=== PATIENT | male | born 1955 | race Caucasian/White ===

== ENCOUNTER 2016-11-26 05:27 | Inpatient (IN) | payer OTHER ==
--- NOTE | 2016-08-22 08:40 | PCM.ANEPRE ---
Anesthesia Pre-Op Review Reason for Review: STOP BANG 12/18 Anesthesia Recommendations: Delay until Additional Data Obtain (Patient needs sleep study and eval for CPAP need before surgery.) Gary Rowley MD Aug 22, 2016 08:40
[2016-11-26] VITALS (12 sets, daily range): BP systolic 106–133; BP diastolic 61–86; PULSE 63–80; RESP 14–21; O2SAT 94–98
[~2016-11-26] VITALS: Ht 188 cm; Wt 119.2 kg
[~2016-11-26 05:27] MED LIST: ASPI-973 PO; HYDR25TA4 PO; IBUP200C PO; LEVO50TA6 PO; Lactated Ringer's 1,000 ML IV ONE; NAPR220C11 PO; SILD100T PO
[2016-11-26] MEDS: Lactated Ringer's 1,000 ML IV SCH ×2 (05:30→07:36)
[2016-11-26] MEDS ORDERED: CeFAZolin Inj 2 GM in IV Premix 1 EACH IV SCH (06:00)
[2016-11-26] MEDS ORDERED: DEXTROSE 5% IV SCH (06:00)
[2016-11-26] MEDS ORDERED: GENTAMICIN IV SCH (06:00)
--- NOTE | 2016-11-26 07:16 | PCM.HPANE ---
Patient Data Surgeon Admitting Provider: Attending Provider:Dav Mcgowan MD Primary Care Physician:Ricardo Bullard MD Other Provider:AndiocReinaGouldbusk Anesthesia Reason for Visit Right Shoulder Arthritis Ht/WT & BMI Height (Feet): 6 Height (Inches): 2.00 Weight (Kilograms): 119.2 Body Mass Index 33.00 Allergies Coded Allergies: No Known Allergies (Unverified , 11/20/16) Past Anesthesia History Anesthesia History: Denies:: Anesthesia Reactions, Malignant Hyperthermia Diabetes History Hx Diabetes?: No MRSA MRSA: No Medications Blood Thinner: Aspirin Hypertension Medication: Yes (HCTZ) Home Meds Incl Beta Jamison: No Reported Medications Naproxen Sodium (Aleve)220 Mg [id number] Mg PO BID PRN prn 11/20/16 Sildenafil Citrate (Viagra)100 Mg [id number] Mg PO UD PRN ED Ref 0 08/21/16 Levothyroxine 50 Mcg [id number] Mcg PO DAILY Ref 0 08/21/16 Ibuprofen 200 Mg [id number] Mg PO QID PRN For Pain Ref 0 08/21/16 Hydrochlorothiazide 25 Mg Lluret47 Mg PO DAILY 30 Days Ref 0 08/21/16 Aspirin 81 Mg [id number] Mg PO DAILY Ref 0 08/21/16 Discontinued Reported Medications Acetaminophen 500 Mg Wuaxog477-7,000 Mg PO Q6H PRN For Pain 08/21/16 History History of ENT Problems?: Yes HEENT History: Positive for:: Sinus Problem (NASAL CONGESTION) Denies:: Abnormal Airway Cataracts Difficult Intubation Dysphagia Glaucoma Hearing Problem TMJ Denture Type: None Teeth Condition: Within Normal Limits Hx of Heart Problems?: Yes Cardiovascular History: Positive for:: Hypertension Irregular Heartbeat (NOTED DURING SLEEP STUDY PAC'S,PVC'S) Denies:: Heart Murmur Other Cardiac History: C/OF BRUISING EASILY Hx of Respiratory Problem?: Yes Respiratory History: Positive for:: Pneumonia (HX OF X2) Use of C-PAP Machine (HERRERA+ W/ CPAP (STARTED 11/07/16) HOME SLEEP STUDY ) Hx Neurologic Problems?: Yes Other Neurological Pertinent: NEUROPATHY/PARESTHESIAS LE'S HX OF CONCUSSIONS X2 Hx of GI Problems?: Yes Other GI Pertinent History: 40# INTENTIONAL WEIGHT LOSS OVER 6 MONTHS TO IMPROVE HERRERA Hx of Problems?: Yes Other Pertinent History: ED Male Hx: Denies:: Prostate Problems Scrotal Mass Testicular Surgery Skin History: Denies:: History Skin Disorders? Pressure Ulcers Hx Musculoskeletal Problems?: Yes Musculoskeletal History: Positive for:: Degenerative Joint Osteoarthritis (RT SHOULDER=CURRENT PROBLEM HX RT SHOULDER DISLOCATION TEENAGER) Denies:: Back Injury (C/OF BACK PAIN) Hx of Psycho/Social Problems?: No Hx Surgeries?: Yes (SPINAL SURGERY,HAND RPR) Hx Any Other Health Problems?: Yes Other History: Positive for:: Thyroid Disease (DARLEEN'S THYROIDITIS) Denies:: Cancer Endocrine Disease Hospitalization History Blood Transfusions: Denies:: Blood Transfusions Hx Diabetes: No Hx Alcohol Use: NoHx Substance Use: No Smoking Status: Smoker Current Status UNK Have You Smoked inLast 12 mo: No Stop/Bang Treated for Sleep Apnea?: Yes Do You Have a CPAP Machine?: Yes S-Snoring: Do You Snore Loudly: Yes T-Tired: feel tired, fatigued: No O-Obsered: Observed not breath: No P-Blood Pressure: treated: Yes B- Body Mass Index > 35 kg/m2: No A- Age over 50: Yes N- Neck Large Circumference: Yes G- Gender Male: Yes HERRERA Total Score: 5 HERRERA Risk Assessment: High Risk, =/>3 Yes Risk Assessment Category Category 1A: Patient has history of documented sleep apnea, and HAS NOT received any narcotic, sedative or anesthesia administration during this stay. Category 1B: Patient has history of documented sleep apnea, and HAS received any narcotic , sedative or anesthesia administration during this stay Category 2: Patient has SUSPECTED Obstructive Sleep Apnea, and HAS received any narcotic , sedative or anesthesia administration during this stay. Category 3: Patient has SUSPECTED Obstructive Sleep Apnea and HAS NOT received narcotic, sedative or anesthesia administration during this stay. Category 4: Outpatient in Procedural Areas with known sleep apnea or who screen positive for High Risk via the STOP/BANG questionnaire. Exam Exam Vital Signs Vital Signs Date Time Temp Pulse Resp B/P Pulse Ox O2 Delivery O2 Flow Rate FiO2 11/26/16 06:03 CPAP/BIPAP 11/26/16 06:02 36.0 80 18 133/86 98 Room Air General Appearance: Oriented X3 HEENT/AIRWAY: MP 2 Lungs: Normal Air Movement Heart: Regular Rate/Rhythm Meds/Labs/Diagnostics Admission Meds Current Medications Lactated Ringer's (Lr) 1,000 ml @ 120 mls/hr Q8H20M IV Last administered on t 05:30; Start 11/26/16 at 05:00; Stop 11/26/16 at 13:19 Plan Impression Patient chart reviewed, patient interviewed and anesthestic plan with risks, benefits, and alternatives discussed, and informed consent obtained. ASA Physical Status: ASA2 Mod Systemic Disease Anesthetic Plan: GA, Regional Block Bene/Risks/Altern/Consents: Yes HP Complete Prior to Induction: Yes Michele Cotto MD November 26, 2016 07:16
[2016-11-26] MEDS ORDERED: Hip/Knee Infiltration Cocktail IM ONE ×7 (07:22)
[2016-11-26] MEDS ORDERED: Bupivacaine Liposome 1.3% 20 mL Inj INFILTRATE ONE (07:22)
[2016-11-26] MEDS ORDERED: 0.9% Sodium Chloride 200 ML ONE (07:26)
[2016-11-26] MEDS: Tranexamic Acid 100 mg/mL 10 mL Inj ONE ×2 (07:58→09:23)
[2016-11-26] MEDS ORDERED: Lactated Ringer's 500 ML IV PRN (08:10)
[2016-11-26] MEDS ORDERED: Ondansetron 2 mg/mL 2 mL Inj IVPUSH PRN (08:10)
[2016-11-26] MEDS ORDERED: MetoCLOpramide 5 mg/mL 2 mL Inj IVPUSH PRN (08:10)
[2016-11-26] MEDS ORDERED: Dexamethasone 4 mg/mL Inj IVPUSH PRN (08:10)
[2016-11-26] MEDS ORDERED: Labetalol 5 mg/mL 4 mL Inj IV PRN (08:10)
[2016-11-26] MEDS ORDERED: Lactated Ringer's 1,000 ML IV SCH (08:10)
[2016-11-26] MEDS ORDERED: fentaNYL-PF 50 mCg/mL 2 mL Inj IVPUSH PRN (08:10)
[2016-11-26] MEDS ORDERED: HYDROmorphone 1 mg/mL Inj IVPUSH PRN (08:10)
[2016-11-26] MEDS ORDERED: EPHEDrine Sulfate 50 mg/mL Inj IVPUSH PRN (08:10)
[2016-11-26] MEDS ORDERED: Phenylephrine 10,000 mCg/mL Inj IVPUSH PRN (08:10)
[2016-11-26] MEDS ORDERED: Gentamicin 40 mg/mL 2 mL Inj INJ ONE (08:35)
[2016-11-26] MEDS ORDERED: Bacitracin 50,000 unit Inj IRRIGATION ONE (08:35)
[2016-11-26] MEDS ORDERED: hydrOXYzine Pamoate 25 mg Capsule PO PRN ×2 (10:00→12:15)
[2016-11-26] MEDS ORDERED: HYDROcodone-APAP 5-325 mg Tablet PO PRN ×2 (10:00→12:15)
[2016-11-26] MEDS ORDERED: Ketorolac 15 mg/mL Inj IVPUSH ONE (10:00)
--- NOTE | 2016-11-26 10:08 | PCM.ORTHOP ---
Orthopedic Operative Report Date of Service: November 26, 2016 Pre Operative Diagnosis Right shoulder degenerative joint disease Post Operative Diagnosis Same Procedure Right total shoulder arthroplasty, open biceps tenodesis Surgeon Surgeon: Dav Mcgowan MD Assistants: Andres Miller Indication for Procedure Right shoulder degenerative joint disease Findings Per dictation Details of Procedure Implant: Arthrex univers vaultlock size large glenoid, stem size 8mm with 52/ 20head The risks, benefits, indications and alternatives, including non-operative management of open reduction and plating were discussed with the patient in detail. The patient understood this operation would be strictly for pain control and would not necessarily improve the function of the arm. The patient voiced understanding of the risks and agreed to proceed. All questions were answered to the patients satisfaction. Verbal and written consent were obtained. Description of Operation: The patient was brought to the operating room. Time out was performed in the presence of the Orthopedic and the tele rn. Preoperative antibiotics were given. Interscalene block performed by anesthesia. General anesthesia was administered. The patient was placed in a beachchair position. The right arm was prepped and draped in the usual sterile fashion. A standard deltopectoral approach was made. Blunt dissection was carried through the interval to expose the subscapularis muscle after retracting the conjoined tendon medially. Care was taken to not damage nearby neurovascular structures. The anterior humeral circumflex vessels were ligated. Paulino scissors were used to cut through the rotator interval to expose the anatomic neck of the humerus. The subscapularis tendon was tagged using # 1 Ethibond sutures. The subscapularis tendon was cut longitudinally using a Bovie. The shoulder was slowly externally rotated while peeling the inferior capsule off of the humeral neck until the shoulder was dislocated and the humeral head was exposed. There were [several small loose bodies] in the subscapularis recess which were removed. There was extensive erosion and flattening of the humeral head. Extensive osteophytes were present over the periphery of the humeral head. 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 The subscapularis was tucked medially. The osteophytes around the humeral head were removed using an osteotome and mallet to expose the anatomic neck. The supraspinatus and infraspinatus were found to be intact and attached to the greater tuberosity. A neck cutting guide was placed and then the cut was made with 30 degrees of retroversion using a saw. The neck was sequentially broached to the proper fit. The head trial were placed until the proper fit was obtained. A head protector sleeve was placed on the cut surface. Using a Triatt retractor the glenoid was exposed. Circumferential exposure of the glenoid from the 1 o'clock position to the 7 o'clock position was done using a Bovie taking care to stay close to the bone. The glenoid was sized and then reamed appropriately. Peg holes were drilled along with the center hole. A trial implant was placed which fit well. After removing the trial, the wound was irrigated. The peg holes were filled with manually pressurized cement and the above mentioned glenoid component was impacted until an excellent fit was obtained. Attention was then taken to the humeral head. The humeral head trial was placed the the shoulder stability was verified after reduction and found to be appropriate. The trial head and stem were removed and proper inclination was noted. Multiple #2 Fiber-wire sutures were placed in the lateral subscapularis stump on the lesser tuberosity and then through the rim of the humeral neck. The implant was assembled on the back table. The wound was irrigated. The humeral implant was impacted into the humerus until the proper fit was obtained. The shoulder was reduced and excellent stability was tested and verified. The subscapularis was then repaired using the aforementioned Fiber-wire sutures and also an 0-Vicryl suture. A proximal biceps tenotomy was performed after a distal tenodesis was performed to the pec major.. The rotator interval was closed. Hemostasis was achieved. The wound was irrigated with copious saline. Local cocktail was used which included bupivicaine. Gentamicin was injected into the joint. IV transexamic acid was used preop and intraop. The wound was then closed in layers , dressed appropriately and the shoulder was placed in an immobilizer. The patient was extubated without difficulty and transferred to the PACU in stable condition. Nonweightbearing to affected upper extremity. Please leave sling on at all times. You may remove sling 3 times a day to move the elbow wrist and fingers. Do not move your shoulder. PROM only, IR to body, ER to 0 degrees, FF to 90 degrees, ABD to 0 degrees. Keep your arm at neutral, NO external rotation of the arm, no resisted IR of the arm. Please keep the affected extremity elevated when possible. You may use ice and/or heat as needed for comfort. Follow-up in 2 weeks with me with 2-view xrays and for suture removal and Steri -Strip application. Follow-up with me at 6 weeks. You will have pain medications , medication for constipation and aspirin 81 qdaily X 2 weeks. Grafts, Implants: None Complications There were no periprocedural complications identified. Condition Stable Anesthetic Administered: GA Catheters: None Output, Estimated Blood Loss: 50 Blood Admin during surgery: No Surgical Cast or Splint: Shoulder Immobilizer Surgical Specimen Removed: No Specimen sent to Pathology: No copies to: Dav Mcgowan MD, Christopher L MD November 26, 2016 10:08
[2016-11-26] MEDS ORDERED: SUGAMMADEX SODIUM IV ONE (10:09)
--- NOTE | 2016-11-26 11:05 | DRSVH ---
PROCEDURE: X-RAY RIGHT SHOULDER, MINIMUM TWO VIEWS ([id number]) INDICATIONS: post op TECHNIQUE: 3 views of the shoulder were acquired. COMPARISON: [facility], CR, XR SHOULDER MIN 2VW RT, 07/02/2016, 9:19. FINDINGS: Expected postoperative changes related to a total right shoulder arthroplasty are evident. The metal lic humeral prosthetic component is intact and appropriately seated without periprosthetic fracture. No dislocation is evident. Postoperative changes of the glenoid are also noted. Expected postopera tive changes within the overlying soft tissues are noted. No unexpected radiopaque foreign bodies ar e identified. IMPRESSION: Expected postoperative changes of the right shoulder, status post total right shoulder ar throplasty. Dictated by: Esau Escobar M.D. on 11/26/2016 at 10:02 Approved by: Esau Escobar M.D. on 11/26/2016 at 10:03
--- NOTE | 2016-11-26 11:13 | PCM.ANEP1 ---
Post Anesthesia Phase 1 PACU Phase 1 Assessment Date of Service: November 26, 2016 Vital Signs Vital Signs Date Time Temp Pulse Resp B/P Pulse Ox O2 Delivery O2 Flow Rate FiO2 11/26/16 11:05 65 18 107/61 94 Nasal Cannula 2 11/26/16 11:00 68 18 110/67 94 Nasal Cannula 2 11/26/16 10:50 72 20 113/68 94 Nasal Cannula 2 11/26/16 10:40 36.4 71 19 115/66 96 Room Air 11/26/16 10:35 73 21 113/64 97 Simple Mask 8 11/26/16 10:30 72 21 130/72 98 Simple Mask 8 11/26/16 10:25 75 16 121/76 97 Simple Mask 8 11/26/16 10:20 79 21 129/72 96 Simple Mask 8 11/26/16 10:18 36.7 80 14 133/77 94 Simple Mask 10 11/26/16 06:03 CPAP/BIPAP 11/26/16 06:02 36.0 80 18 133/86 98 Room Air Anesthetic Administered: GA Level of Alertness: Awake, talking Pain: No Nausea or Vomiting: No Airway Device: Oralpharangeal Airway Oxygen Delivery: Room Air Lungs: Normal Air Movement Michele Cotto MD November 26, 2016 11:13
[2016-11-26] MEDS ORDERED: Ondansetron 2 mg/mL 2 mL Inj ONE (11:25)
[2016-11-26] MEDS ORDERED: Rocuronium 10 mg/mL 5 mL Inj ONE (11:25)
[2016-11-26] MEDS ORDERED: Propofol 10,000 mCg/mL 20 mL Inj ONE (11:25)
[2016-11-26] MEDS ORDERED: MetoCLOpramide 5 mg/mL 2 mL Inj ONE (11:25)
[2016-11-26] MEDS ORDERED: Dexamethasone 4 mg/mL Inj ONE (11:25)
[2016-11-26] MEDS ORDERED: Phenylephrine/NS 100 mCg/mL 10 mL Syringe IVPUSH ONE (11:25)
[2016-11-26] MEDS ORDERED: Glycopyrrolate 0.2 MG/ML 1mL Inj ONE (11:25)
[2016-11-26] MEDS ORDERED: Neostigmine 1 mg/mL 10 mL Inj ONE (11:25)
[2016-11-26] MEDS ORDERED: Ondansetron 8 mg ODT Tablet PO PRN (12:15)
[2016-11-26] MEDS ORDERED: Alum-Mag Hydrox-Simeth 30 mL Suspension PO PRN (12:15)
[2016-11-26] MEDS ORDERED: Sodium Biphos-Phos 133 mL Enema RECTAL PRN (12:15)
[2016-11-26] MEDS ORDERED: Ondansetron 2 mg/mL 2 mL Inj IV PRN (12:15)
[2016-11-26] MEDS ORDERED: diphenhydrAMINE 25 mg Capsule PO PRN (12:15)
[2016-11-26] MEDS ORDERED: Magnesium Hydroxide 10 mL Oral Concentration PO PRN (12:15)
[2016-11-26] MEDS ORDERED: MetoCLOpramide 5 mg/mL 2 mL Inj IV PRN (12:15)
--- NOTE | 2016-11-26 13:28 | NUR ---
Arrival to 1025 Pt transferred from PACU at 1120 to room 1025, report taken from AUDREY Horn. Pt denies pain in R shoulder from block: sensation intact from fingers up to mid upper arm, shoulder is numb; moves fingers and wrist. Nausea is denied and pt is tolerating clear liquids well; IVF not restarted at this time. On 2L NC and set up on CPOx for HERRERA protocol; CPAP is at bedside for use tonight. KEEGAN marie on BLE and SCD's applied. Pt oriented to room at this time.
--- NOTE | 2016-11-26 15:58 | NUR ---
PT NOTE-- Patient seen by OT for TSA rehab. Discontinue PT order.
--- NOTE | 2016-11-26 15:59 | NUR ---
Evaluation completed. Please go to "Notes" then click on "Assessments and Notes" (bottom left corner of screen). Then select appropriate discipline tab on top of screen.
[2016-11-26] MEDS ORDERED: CeFAZolin Inj 1 GM in IV Premix 1 EACH IV SCH (16:30)
[2016-11-26] MEDS ORDERED: 0.9% Sodium Chloride 250 ML ONE (16:49)
[2016-11-26] MEDS: CeFAZolin Inj 2 GM in IV Premix 1 EACH IV SCH (16:57)
[2016-11-26] MEDS: Ketorolac 15 mg/mL Inj IVPUSH SCH (18:30)
[2016-11-27] MEDS: Ketorolac 15 mg/mL Inj IVPUSH SCH (00:59)
[2016-11-27] MEDS: CeFAZolin Inj 2 GM in IV Premix 1 EACH IV SCH (01:03)
[2016-11-27 04:13] VITALS: BP 128/92; PULSE 68; RESP 18; O2SAT 98
--- NOTE | 2016-11-27 05:27 | NUR ---
PAIN / SLEEP Patient denied BTP thru NOC, states he is comfortable and declined offer of PRN. RUE sling in place, + CSM checks. Home CPAP applied at HS, CPOX sats 97%. denies SOB/dyspnea. Slept well thru the NOC. no c/o. VS are stable. CTM for changes.
[2016-11-27 06:36] LABS: BASOPHILS % (AUTO) 0 % (0-3); EOSINOPHILS % (AUTO) 0.1 % (0-5); MONOCYTES % (AUTO) 6.8 % (4-12); Mean Corpuscular Hemoglobin 29.6 pg (27.0-35.0); Mean Corpuscular Volume 90.1 fL (81-100); NEUTROPHILS % (AUTO) 86.9 % (40-74); Platelet Count 218 bil/L (150-400)
[2016-11-27 07:52] VITALS: BP 130/78; PULSE 64; RESP 18; O2SAT 98
--- NOTE | 2016-11-27 10:22 | PCM.DIORTH ---
Ortho Discharge Instruction Date of Service: November 27, 2016 Dates of Hospitalization Date of Hospital Admission November 26, 2016 at 11:24 Providers Admitting Physician: Dav Mcgowan MD Primary Care Physician: Ricardo Bullard MD Attending Physician: Dav Mcgowan MD Diet Discharge Diet: No restrictions Activity Right Upper Extremity: Non-weight bearing Dressing and Incisional Care Discharge Dressing Care: Keep dressing clean, dry & intact Additional Instructions Discharge Instructions Patient will remain in sling at all times except 3 times a day to gently extend the elbow and for wrist range of motion. Please do not rotate your elbow or arm outward or outweigh from your body. After 3 days, you may remove the dressing, you may shower and water may gently run over the incision, gently dry when finished and you may apply a bandage over the surface if desired or leave this open. After this moved back into the sling. No lifting, pulling, pushing with this arm. Please keep in this protected position even at nighttime in the sling. Patient will be given [place] 5/325 mg tablets to take 1-2 every 3-4 hours if needed for pain. Patient will take aspirin 81 mg by mouth daily for 2 weeks only. We will not need to do this for 6 weeks total. We would like you to follow-up at our clinic at 2 weeks postoperatively, to make sure the incision is healing well and discuss further rehabilitation at bedtime. Andres Miller PA-C November 27, 2016 10:22
--- NOTE | 2016-11-27 10:22 | PCM.PNORTH ---
Subjective Date of Service: November 27, 2016 Visit Information: Reason for Visit Right Shoulder Arthritis Surgery/Surgery Date RIGHT TOTAL SHOULDER ARTHROPLASTY 11/26/16 Post-Op Day # Date of Admission: November 26, 2016 at 11:24 Hospital Day # Subjective Status post day #1 right total shoulder arthroplasty. Patient states he is doing very well. His pain is well-controlled. He would just like instructions on showering and how to care for the arm. Postop General: No Complaints, No Shortness of Breath, No Chest Pain Objective Exam Objective Patient is alert and oriented 3. Answering questions appropriately. Patient is standing up in the room and not in acute distress today. Dressing is clean dry and intact. Patient wearing the sling appropriately. Able to wiggle his fingers. Sensation and pulses are intact and normal. Patient did very well with occupational therapy. Vital Signs and I/O Vital Sign - Last Date Time Temp Pulse Resp B/P Pulse Ox O2 Delivery O2 Flow Rate FiO2 11/27/16 09:45 CPAP/BIPAP 11/27/16 07:52 36.7 64 18 130/78 98 11/26/16 11:05 2 Intake and Output 11/26/16 11/26/16 11/27/16 Cumulative From/Thru 15:00 23:00 07:00 08/21/16 11:48 - 11/27/16 06:20 Intake Total 1305 ml 800 ml 748 ml 2853 ml Output Total 100 ml 600 ml 700 ml Balance 1205 ml 200 ml 748 ml 2153 ml Intake Oral 800 ml 640 ml 1440 ml IV Total 1305 ml 108 ml 1413 ml Output Urine Total 600 ml 600 ml Estimated Blood Loss 100 ml 100 ml # Voids 2 2 # Bowel Movements 1 1 Lab & Micro Results Laboratory Tests Test 11/27/16 05:48 White Blood Count 11.3th/mm3 (3.8-10.1) Red Blood Count 3.62mil/mm3 (4.40-5.80) Hemoglobin 10.7g/dL (13.8-17.2) Hematocrit 32.6% (41.0-50.0) Mean Corpuscular Volume 90.1fL (81-100) Mean Corpuscular Hemoglobin 29.6pg (27.0-35.0) Mean Corpuscular Hemoglobin Concent 32.8% (32.0-37.0) Red Cell Distribution Width 13.8% (12.3-15.4) Platelet Count 218bil/L (150-400) Neutrophils (%) (Auto) 86.9% (40-74) Lymphocytes (%) (Auto) 6.0% (14-46) Monocytes (%) (Auto) 6.8% (4-12) Eosinophils (%) (Auto) 0.1% (0-5) Basophils (%) (Auto) 0% (0-3) Result Diagram: 11/27/16 0548 Catheters: None Assessment & Plan Impression Status post day #1 right total shoulder arthroplasty. Patient doing very well, ready for discharge to home today. Problems: Plan Patient will remain in sling at all times except 3 times a day to gently extend the elbow and for wrist range of motion. Please do not rotate your elbow or arm outward or outweigh from your body. After 3 days, you may remove the dressing, you may shower and water may gently run over the incision, gently dry when finished and you may apply a bandage over the surface if desired or leave this open. After this moved back into the sling. No lifting, pulling, pushing with this arm. Please keep in this protected position even at nighttime in the sling. Patient will be given [place] 5/325 mg tablets to take 1-2 every 3-4 hours if needed for pain. Patient will take aspirin 81 mg by mouth daily for 2 weeks only. We will not need to do this for 6 weeks total. We would like you to follow-up at our clinic at 2 weeks postoperatively, to make sure the incision is healing well and discuss further rehabilitation at bedtime. Patient will be discharged to home today. Andres Miller PA-C November 27, 2016 10:20
--- NOTE | 2016-11-27 10:26 | PCM.DC.ORT ---
Discharge Summary Date of Service: November 27, 2016 Date of Hospital Admission: November 26, 2016 at 11:24 Date of Surgery: November 26, 2016 Date of Discharge: November 27, 2016 Reason for Hospitalization: Right shoulder osteoarthritis Procedures Performed: Right total shoulder arthroplasty Hospital Course: Patient presented to [facility] surgical suite for the procedure of right total shoulder arthroplasty by Dr Dav Mcgowan on 11/26/2016. Patient was prepped for surgery and the procedure was performed successfully, patient was discharged to PACU under stable condition, tolerated the procedure well. Once stabilized in PACU and pain well controlled, patient was admitted to the hospital floor for observation, pain control, and progression with physical therapy. The first day the patient was able to resume a regular diet, void on their own, not having any problems with nausea or vomiting. The patient did not have any adverse falls, reactions, or events were all in the hospital. The patient began working with physical therapy on day one then progressed quite well with reasonable pain control. On day 1 the patient was able to ambulate safely on their own, and pain was controlled sufficiently to be discharged to home. We will utilize aspirin 81 mg by mouth once a day for 2 weeks for DVT prophylaxis. The patient was discharged to home under stable condition with plan to follow- up with patient at 2 weeks for a postoperative appointment. Diagnosis at Time of Discharge Status post right total shoulder arthroplasty. Problems: Orthopedic Follow up Plan: In Two Weeks in my clinic Discharge Instructions: Patient will remain in sling at all times except 3 times a day to gently extend the elbow and for wrist range of motion. Please do not rotate your elbow or arm outward or outweigh from your body. After 3 days, you may remove the dressing, you may shower and water may gently run over the incision, gently dry when finished and you may apply a bandage over the surface if desired or leave this open. After this moved back into the sling. No lifting, pulling, pushing with this arm. Please keep in this protected position even at nighttime in the sling. Patient will be given [place] 5/325 mg tablets to take 1-2 every 3-4 hours if needed for pain. Patient will take aspirin 81 mg by mouth daily for 2 weeks only. We will not need to do this for 6 weeks total. We would like you to follow-up at our clinic at 2 weeks postoperatively, to make sure the incision is healing well and discuss further rehabilitation at bedtime. Aspirin (Aspirin) 81 Mg Tablet 81 MG PO DAILY Hydrochlorothiazide (Hydrochlorothiazide) 25 Mg Tablet 25 MG PO DAILY Levothyroxine (Levothyroxine) 50 Mcg Tablet 88 MCG PO DAILY Sildenafil Citrate (Viagra) 100 Mg Tablet 20-100 MG PO UD PRN PRN ED Andres Miller PA-C November 27, 2016 10:25
--- NOTE | 2016-11-27 10:50 | NUR ---
Social Work- Screening/Readiness for Discharge Data: EMR reviewed. Pt is a 61 year old male admitted 11/26/16 for right shoulder arthritis per H&P. Pt is POD 1. NOK is Sonia Tadeo, . Pt is medically ready to discharge, orders are in. TRAINING PROFESSIONAL met with pt and at bedside regarding discharge plan, SW role explained. Pt is independent at baseline. Pt to discharge home with to transport via POV. No anticipated discharge needs. SW will continue to follow if needs arise. Assessment: Pt who is independent at baseline. Plan: Pt to discharge home with to transport via POV. No anticipated discharge needs. SW will continue to follow if needs arise. RAUDEL Pedersen
--- NOTE | 2016-11-27 11:26 | NUR ---
Discharge Pt left with via private car. IV removed. A&Ox3, vitals stable, discharge instructions gone over and understood. All questions answered. Follow up apt already made. Sent pt home with a couple dressing changes. Prescription sent with pt to be filled. No pain noted.
--- NOTE | 2016-11-27 13:18 | NUR ---
Social Work- Discharge Data: Pt discharged today. Pt to discharge home with to transport via POV. No discharge needs. Assessment: Pt who is independent at baseline. Plan: Pt to discharge home with via POV. No discharge needs. RAUDEL Pedersen
== END 2016-11-27 11:19 | disposition home or self-care (01) | DRG 315 ==
LOC: SAS 05:27 → OSC 11:24
PROVIDERS: ADMIT Orthopaedic Surgery; ATTEND Orthopaedic Surgery
PROC: 0LS30ZZ Reposition Right Upper Arm Tendon, Open Approach (ICD-10-PCS; 2016-11-26)
PROC: 0RRJ0JZ Replacement of Right Shoulder Joint with Synthetic Substitute, Open Approach (ICD-10-PCS; principal; 2016-11-26 07:30)
DX: M19.011 Primary osteoarthritis, right shoulder (principal); I10 Essential (primary) hypertension; E06.3 Autoimmune thyroiditis; G47.33 Obstructive sleep apnea (adult) (pediatric)